=== PATIENT | male | born 1950 | race Caucasian/White ===

== ENCOUNTER → 2017-04-08 | Outpatient (CLI) | payer OTHER ==
[~2017-04-08] MED LIST: HYZAAR 50-121 TABLET PO; NORVASC5 MG PO; PERCOCET 5/31 TABLET PO
== END | disposition home or self-care (01) ==
LOC: OPR 09:51 → EDSTATUS 10:00 → OPR 10:00
DX: M62.9 Disorder of muscle, unspecified (principal); I10 Essential (primary) hypertension
CPT/HCPCS: 77012; 88305; J3010

== ENCOUNTER → 2017-04-22 | Outpatient (CLI) | payer MEDICARE, OTHER | END | disposition home or self-care (01) | LOC: CDC 14:25 | DX: C49.4 Malignant neoplasm of connective and soft tissue of abdomen (principal) | CPT/HCPCS: 93000 ==

== ENCOUNTER 2017-05-15 09:48 | Day surgery (SDC) | payer OTHER ==
[~2017-05-15] VITALS: Ht 172.7 cm; Wt 81.6 kg
[~2017-05-15 09:48] MED LIST changes: +COZAAR50 MG PO
[2017-05-15 10:09] VITALS: BP 157/91
[2017-05-15] MEDS ORDERED: OXAYDO5 MG PO (15:36)
[2017-05-15 16:14] VITALS: BP 139/76
[2017-05-15 19:49] VITALS: BP 152/83
[2017-05-16 01:11] VITALS: BP 154/86
[2017-05-16 03:55] VITALS: BP 160/85
[2017-05-16 07:43] VITALS: BP 183/84
[2017-05-16 11:52] VITALS: BP 171/88
== END 2017-05-16 13:38 | disposition home or self-care (01) ==
LOC: SDC 09:48 → 2SOUTH 10:16 → SDC 13:56 → EDSTATUS 15:09 → 2SOUTH 15:16 → 2EASTP 15:16 → 2SOUTH 15:16 → 2EASTP 16:17
DX: D36.10 Benign neoplasm of peripheral nerves and autonomic nervous system, unspecified (principal); I10 Essential (primary) hypertension; E78.5 Hyperlipidemia, unspecified
CPT/HCPCS: 88305; 94799; G0378; J0330; J0690; J1100; J1170; J1650; J2250; J2405; J2710; J3010

== ENCOUNTER → 2017-05-21 | Outpatient (CLI) | payer OTHER ==
[~2017-05-21] MED LIST changes: +OXAYDO5 MG PO
== END | disposition home or self-care (01) ==
LOC: AMB 13:24
DX: R21 Rash and other nonspecific skin eruption (principal); Z98.890 Other specified postprocedural states

== ENCOUNTER → 2017-06-09 | Outpatient (CLI) | payer OTHER | END | disposition home or self-care (01) | LOC: AMB 05-26 12:30 | DX: R21 Rash and other nonspecific skin eruption (principal) | CPT/HCPCS: 99211 ==